=== PATIENT | male | born 1980 | race Caucasian/White ===

== ENCOUNTER 2018-11-17 06:10 | Inpatient (IN) | payer OTHER ==
[2018-11-13 10:25] VITALS: BMI 31.5
[2018-11-17] MEDS ORDERED: VANCOMYCIN 1 GRAM (PRE-DOCKED) 1,000 MG/250 ML BAG IVPB ONE (07:55)
[2018-11-17] MEDS ORDERED: BUPIVACAINE LIPOSOME/PF (EXPAREL) 266 MG/20 ML VIAL NR ONE (08:00)
[2018-11-17] MEDS ORDERED: ceFAZolin 2 GRAM PREMIX BAG IVPB ONE (09:00)
[2018-11-17] MEDS ORDERED: THROMBIN (BOVINE) 5,000 UNIT VIAL TP ONE (09:54)
[2018-11-17] MEDS ORDERED: ceFAZolin SODIUM 1 GM VIAL IVPB ONE ×2 (11:49→11:55)
--- NOTE | 2018-11-17 12:51 | PN ---
Progress Note (short form) - Note Progress Note: 38M s/p L3 laminectomy; L2 & L4 laminotomies; partial corpectomy L4; L3-L4 PLIF ; L3-L4 posterior instrumentation; L3-L4 posterolateral arthrodesis; bone graft ; bone marrow aspiration POD #0. -Pain control: per anaesthesia team; recommend CT TECHNOLOGIST; no NSAID's. -DVT PPx: - Mechanical only: DEMARCO's, SCD's. -Incentive spirometry q15min. -PT/OT/Rehab, OOB. -WBAT B/L LE. -q4h B/L LE NV checks. -Post-op antibiotics x 2 doses. -NPO until flatus. -f/u AM labs. -f/u drain output. -d/c Pritchett catheter when patient ambulating comfortably. -Care per ICU & medical hospitalist team. -Discharge planning: f/u 11/28/2018 at [facility] [place] office; call for appointment; . -Will follow. Shayan Gutierrez MD (Orthopaedic Surgery).
--- NOTE | 2018-11-17 12:56 | OP ---
Operative Note - Note: Operative Date: 11/17/18 Pre-Operative Diagnosis: 1. L3-L4 spondylolisthesis. 2. L3-L4 intervertebral disc disorder. 3. L3-L4 spinal stenosis. 4. Lumbar kyphosis. 5. L3-L4 segmental instability Operation: 1. L3 laminectomy. 2. L2 & L4 laminotomies. 3. L4 partial corpectomy. 4. L3-L4 PLIF. 5. L3-L4 posterior instrumentation. 6. L3-L4 posterolateral arthrodesis. 7. Bone autograft. 8. Bone allograft. 9. Bone marrow aspiration. 10. Complex wound closure (10cm). 11. Biplanar fluoroscopy. 12. Intra-operative neural monitoring Findings: L3 spondylolysis Post-Operative Diagnosis: Other (Pre-op diagnosis PLUS: L3 spondylolysis) Surgeon: Shayan Gutierrez Tattooer: Gonzales Gutierrez Anesthesiologist/DISCHARGE SPECIALIST: Jen Cedillo Anesthesia: General, Local (Erector spinae block) Specimens Removed: L3-L4 disc Estimated Blood Loss (mls): 600 Drains & Tubes with Location: 1 x superficial HemoVac Blood Volume Replaced (mls): 250 (Cell saver) Fluid Volume Replaced (mls): 1,800 (Crystalloid) Operative Report Dictated: Yes
[2018-11-17] MEDS ORDERED: ONDANSETRON 4 MG/2 ML VIAL IVPUSH PRN (12:57)
[2018-11-17] MEDS ORDERED: LACTATED RINGERS SOLUTION 1,000 ML IV SCH (13:00)
--- NOTE | 2018-11-17 13:18 | CONSULT ---
Consultation: REQUESTING PROVIDER: Dr. Gutierrez CONSULT REQUEST: Post-operative observation HISTORY OF PRESENT ILLNESS: The patient is a 38M w/ no reported PMH who presented for scheduled surgery today for L3-4 spondylolisthesis and stenosis. The patient is now s/p: 1. L3 laminectomy. 2. L2 & L4 laminotomies. 3. L4 partial corpectomy. 4. L3-L4 PLIF. 5. L3-L4 posterior instrumentation. 6. L3-L4 posterolateral arthrodesis. 7. Bone autograft. 8. Bone allograft. 9. Bone marrow aspiration. 10. Complex wound closure (10cm). 11. Biplanar fluoroscopy. 12. Intra-operative neural monitoring The patient states that he is has mild pain at the operative site but it is controlled. He denies any other complaints. Denies recent illness, fevers/chills , vision changes, chest pain, SOB, nausea, weakness, or changes in sensation. REVIEW OF SYSTEMS: GENERAL/CONSTITUTIONAL: No fever or chills. No weakness HEAD, EYES, EARS, NOSE AND THROAT: No change in vision. No ear pain or discharge. No sore throat CARDIOVASCULAR: No chest pain or shortness of breath RESPIRATORY: Denies cough, hemoptysis GASTROINTESTINAL: No nausea, vomiting, diarrhea or constipation GENITOURINARY: No dysuria, frequency, or change in urination SKIN: No rash NEUROLOGIC: No headache, vertigo, loss of consciousness, or change in strength/ sensation ENDOCRINE: No increased thirst. No abnormal weight change HEMATOLOGIC/LYMPHATIC: No anemia, easy bleeding, or history of blood clots ALLERGIC/IMMUNOLOGIC: No hives or skin allergy PHYSICAL EXAMINATION Vital Signs - 24 hr 11/17/18 11/17/18 06:44 06:45 Temperature 98.1 F Pulse Rate 72 Respiratory 20 Rate Blood Pressure 149/74 O2 Sat by Pulse 100 Oximetry (%) GENERAL: Awake, alert, and fully oriented, in no acute distress HEAD: No signs of trauma, normocephalic, atraumatic EYES: PERRLA, EOMI, sclera anicteric, conjunctiva clear ENT: Hearing grossly normal, nares patent, oropharynx clear without exudates. Moist mucosa LUNGS: No distress, speaks full sentences, clear to auscultation bilaterally HEART: Regular rate and rhythm, normal S1 and S2, no murmurs appreciated, peripheral pulses normal and equal bilaterally ABDOMEN: Soft, nontender, normoactive bowel sounds. No guarding, no rebound BACK: HV drain in place, surgical dressing in place, C/D/I EXTREMITIES : Normal inspection, Normal range of motion, no edema. No clubbing or cyanosis. Sensation and strength intact distally in all extremities. NEUROLOGICAL: Cranial nerves II through XII grossly intact. Normal speech, no focal sensorimotor deficits SKIN: Warm, Dry, normal turgor, no rashes or lesions noted Active Medications Generic Name Dose Route Start Last Admin Trade Name Freq PRN Reason Stop Dose Admin Acetaminophen 1,000 mg 11/17/18 13:00 Ofirmev Injection - IVPB 11/19/18 05:01 Q8H HERNANDEZ Cefazolin Sodium/Dextrose 2 gm 11/17/18 19:00 Ancef 2 Gm Premixed Ivpb - IVPB 11/18/18 18:59 Q8H HERNANDEZ Lactated Ringer's 1,000 mls @ 125 mls/hr 11/17/18 13:00 Lactated Ringers Solution IV ASDIR HERNANDEZ Ondansetron HCl 4 mg 11/17/18 12:57 Zofran Injection IVPUSH Q6H PRN NAUSEA AND/OR VOMITING ASSESSMENT/PLAN: The patient is a 38M s/p L3-4 PLIF on 11/17/2018 w/ Dr. Gutierrez s/p L3-4 PLIF -q4h B/L MISTI AGOSTO checks Neuro Acute post operative pain -Ofirmev 1g Q8H -S/p nerve block CV HDS, CTM Pulm Breathing comfortably on RA, CTM -IS Q15min GI NPO Pritchett in place -Will D/C when patient is able to ambulate Heme S/p 250 transfusion of cell-saver in OR -Will f/u H/H DVT Ppx -Mechanical only ID Afebrile MSK -Surgical dressing in place, C/D/I -WBAT BLE -PT/OT/Rehab, OOB. LTD Lumbar drain 11/17/2018 Pritchett 11/17/2018 Dispo: Patient to remain in the ICU today for post-operative care Discharge planning: [facility]u [facility]28/2018 [facility] office; call for appointment; . Visit type - Emergency Visit Emergency Visit: Yes ED Registration Date: 11/17/18 Care time: The patient presented to the Emergency Department on the above date and was hospitalized for further evaluation of their emergent condition. - New Patient This patient is new to me today: Yes Date on this admission: 11/17/18 - Critical Care Critical Care patient: Yes Total Critical Care Time (in minutes): 35 Critical Care Statement: The care of this patient involved high complexity decision making to prevent further life threatening deterioration of the patient 's condition and/or to evaluate & treat vital organ system(s) failure or risk of failure.
[2018-11-17] MEDS ORDERED: oxyCODONE HCL 5 MG TABLET PO PRN (13:41)
[2018-11-17] MEDS ORDERED: ACETAMINOPHEN 325 MG TABLET (FP) PO SCH (13:45)
--- NOTE | 2018-11-17 14:29 | OP ---
Date of Operation: 11/17/2018 Pre-Operative Diagnosis: 1. L3-L4 intervertebral disc disorder. 2. L3-L4 spinal stenosis. 3. L3-L4 posterior ligamentous complex disruption. 4. L3-L4 spondylolisthesis. 5. Segmental instability lumbar spine. Post-Operative Diagnosis: 1. L3-L4 intervertebral disc disorder. 2. L3-L4 spinal stenosis. 3. L3-L4 posterior ligamentous complex disruption. 4. L3-L4 spondylolisthesis. 5. L3 spondylolysis. 6. Segmental instability lumbar spine. Procedure Performed: 1. L3 Flores laminectomy. 2. L2, L4 laminotomies. 3. L4 osteotomies/superior facetectomies. 4. L3-L4 discectomy. 5. L4 partial corpectomy. 6. L3-L4 posterior lumbar interbody fusion (PLIF). 7. L3-L4 insertion biomechanical device. 8. L3-L4 posterior arthrodesis. 9. L3-L4 posterior instrumentation. 10. Bone autograft. 11. Bone allograft. 12. Bone marrow aspiration. 13. Complex wound closure, 10cm. 14. Intra-operative biplanar fluoroscopy. 15. Intra-operative neural monitoring. Surgeon: Shayan Gutierrez M.D. Green Chain Operator: Gonzales Gutierrez M.D. Anesthesiologist: Jen Cedillo M.D. Anesthesia: General, Local (Erector spinae block). Position: Prone. Incision: Midline. Specimens Removed: L3-L4 disc. Drains: 1 x deep HemoVac. Estimated Blood Loss: 600cc. Intravenous Fluid: 1.8L crystalloid. Transfusions: 250cc Cell Saver blood. Complications: None. Bacteriology: None. Closure: No. 1 Vicryl, 3-0 Biosyn absorbable sutures. Indications: The patient was indicated for the above listed surgical procedure due to progressive functional decline that limits his mobility and furthermore his ability to attend to his activities of daily living. The patient was identified in the holding area by his armband. A long discussion was held with the patient regarding the risks, benefits, and alternatives of the above-named procedure. The risks include, but are not limited to: Pain, bleeding, infection, damage to surrounding structures (including nerves, blood vessels, skin, ligaments, tendons, and bone), wound complications, failure of hardware/implants/reduction , need for further surgery, blood clots, myocardial infarction, cerebrovascular injury, pulmonary embolism, anesthesia complications, limp, numbness, paresthesias, loss of function, and . Benefits may include reduction of: back pain, leg pain, leg paresthesias, leg numbness, and improved overall mobility and function. Alternatives include no surgery. All questions were answered. The patient understood and agreed to the procedure. Informed consent was obtained, witnessed, and verified. The patient's lumbar spine was marked. He was then assessed by the anesthesia team who proceeded to administer a bilateral imaging-guided erector spina block to facilitate post-operative pain management. The patient was then taken to the operating room after being seen by the anesthesia and nursing staff. Procedure: The patient was brought into the operating room, where anesthesia was then administered. This included 2g IV Ancef, 1g IV Vancomycin, and 1g IV tranexamic acid (TXA). A time-out was done led by , the attending surgeon. An indwelling Pritchett catheter was successfully inserted by the nursing team. The intra-operative neuromonitoring team provided prepositioning baseline motor and sensory readings. The patient was then safely placed in a prone position with all bony prominences well-padded on a [facility] spine table with strict attention paid to maintenance of sagittal vertical alignment. Retroversion of the pelvis was avoided by ensuring that the hips were extended. This also ensured appropriate lumbar lordosis. The arms were placed on well-padded arm boards and maintained with standard forward flexion, abduction, and external rotation of the shoulders , and flexion of the elbows. Special attention was given to the safe positioning of the cervical spine. The patients eyes, breasts, and belly were all free. The table was placed in 10 degrees of reverse Trendelenburg position to avoid ophthalmic vein congestion. Post-positional motor and sensory readings confirmed no change. A C-arm fluoroscopy unit was positioned perpendicularly to the table and maintained at the level of the upper thoracic spine, except when needed. The skin was prepped in standard, sterile fashion using betadine prep & scrub, wiped off with alcohol, and DuraPrep applied. Standard window draping was utilized, and this included draping of the C-arm. Appropriate pre-operative imaging, including lumbar spine x-rays and MRI, were available throughout the case for intraoperative evaluation. Verification of the intended surgical levels was confirmed with a lateral fluoroscopic x-ray using a Gonzalez elevator for localization. A time-out was repeated, and the case began. A midline skin incision was performed from the tip of the spinous process of L2 to the tip of the spinous process of L5. Using electrocautery, the dissection was carried down through subcutaneous fat and then through the midline of the lumbodorsal fascia down to the tips of the spinous processes. A subperiosteal dissection was performed using a combination of unipolar electrocautery and Gonzalez elevation. This was carried down the spinous process, over the laminae, across the facet joints, and out over the tips of the transverse processes from L3 to L4. In this dissection, the capsules of the L2-L3 & L4-L5 joints were preserved bilaterally. The L3-L4 joint capsules were pathologically hypertrophic. They were ablated using electrocautery and resected with rongeurs. There was an obvious step-off noted during the transition from L3 to L4 with an anterolisthesis of L3 on L4. This was confirmed radiographically. The posterolateral dissection was performed with attention to hemostatis by utilizing both unipolar as well as bipolar electrocautery. The posterolateral space was packed with Ray-Vlad sponges. A Lon clamp was placed over the L2-L3 interspinous space and, once again, a lateral fluoroscopic x-ray helped identify the correct levels for dissection. A rongeur was used to grasp the L3 spinous process and demonstrate the mobility of the L3-L4 segment. This confirmed a spondylolysis with pathological movement of the inferior L3 facets during this maneuver. The entirety of the L3 lamina was resected utilizing Kerrison rongeur upcuts combined with Leksell rongeurs. Bilateral and central laminotomies were performed at the caudal end of the L2 lamina and the rostral end of the L4 lamina. All harvested bone was saved, freed of fibrous tissue, and milled with a bone mill. The bilateral L3 inferior facets were easily resected using Kerrison rongeur upcuts and Leksell rongeurs. This was due to the pars interarticularis defects (I.E. spondylolysis) at that level. This completed an L3 Flores laminectomy. Next, we gained clear and easy access to the superior facet of L4, where tight recess stenosis was appreciated. The exiting L3 & L4 nerve roots were identified and protected. The medial edge of the L4 superior facet was resected on each side using Kerrison rongeurs. This freed the theca and the exiting nerve roots at each level. Each foramen at L3-L4 was inspected utilizing an angled ball-tipped probe and proved to be generously capacious in accommodating the unobstructed exit of the nerve root at that level. The crowding of the convoluted ligamentum flavum and posterior facet joint capsules, along with excessive fibrosis adherent to the dura contributed to severe recess stenosis. These structures were excised using a Genoveva elevator and Kerrison upcuts, thus fully completing the decompression. All retractors were relaxed and removed. A Jamshidi needle was delivered into the left posterior ileum through the same surgical incision. Via this, 60 mL of bone marrow was aspirated and spun down to isolate a mix of osteoprogenitor and hematopoietic cells. Retractors were inserted once again. The theca was gently mobilized from right to left and from left to right using a nerve root retractor. In order to do this, we ensured that each nerve root was completely free in its neural foramen as previously described. Access to the L3-L4 disc space was obstructed by the posterior, cephalad corner of the L4 vertebral body. A partial corpectomy of L4 was then performed with an osteotome under fluoroscopic guidance. With the L3-L4 disc space now accessible, large epidural veins were cauterized using bipolar electrocautery. The L3-L4 disc was approached from the left side and from the right side. Using a #11-blade, an elliptical annulotomy was performed. Miguel were passed into the disc. The disc was morselized with rotation of the miguel, and then extricated with pituitary rongeurs and saved for lab evaluation. The end plates were freed of all soft tissues using a serrated curette. Milled bone autograft was packed into the interbody space, thus completing an anterior arthrodesis of the intervertebral space. A size 10mm x 22mm Fortilink Tetrafuse cage spacer was inserted. The cage was placed in a Press-Fit type manner where the miguel were one size under the actual size of the spacer placed as outlined above. An interference fit of the cage assured as we relied on ligamentotaxis for fixation. No dural problems were encountered, and the dura appeared healthy throughout the procedure. At this point, the neuromonitoring revealed no complications. In fact, there was an improvement in MEP readings relative to baseline reported at this point. Pedicle screws were then seated bilaterally from L3-L4 utilizing standard anatomical guidelines: IE the intersection of the horizontal axis of the transverse process with the longitudinal axis of the inferior facet at each level. Utilizing lateral fluoroscopic x-ray, a 4.5mm pneumatic drill was passed via the pedicle at each level, into the corresponding vertebral body. Imaging allowed us to ensure that the drill screw was delivered along the undersurface of each endplate. This was the best quality bone in this osteopenic bone bed. Each pedicle was palpated with a ball tip feeler. No breech of anterior, medial , lateral, caudal or cranial bone bed was noted. Size 50 x 6.5 mm Precision screws were inserted at L4. Size 45 x 6.5 mm Precision screws were inserted at L4. Each screw was reevaluated with lateral and anteroposterior fluoroscopy as well as intraoperative neuromonitoring. All intraoperative neuromonitoring readings were at or above the safe passage of 10 mA, except the right L3 screw which was recorded at 9mA on 2 separate readings. The L3 and L4 pedicles were inspected and palpated using an angled ball-tipped probe. There was no evidence of screw breach involving any of the pedicles. Due to excellent screw position seen on biplanar fluoroscopy, the decision was made not to replace any screws. Next, two rods were inserted and fixed into the screw heads with the appropriate screw caps. A torque-limiting device completed the fixation of each cap into each screw head. No crosslink utilized. The muscle was gently retracted off the intertransverse plane. All packing sponges were removed. Milled autologous bone, with allograft expansion, was combined with the bone marrow aspirate concentrate and used for the posterolateral arthrodesis along the intertransverse plane from L3 to L4. The recipient bone bed was denuded of all soft tissue. No burring was necessary due to healthy bleeding of each bony surface, including the posterior surface of the transverse processes and the lateral surface of the pars interarticularis at each level. Throughout the case, the wound was irrigated with normal saline solution to keep the exposed soft tissues hydrated. The retractors were released every 15 to 20 minutes to enable adequate blood flow to the paraspinal muscles. These muscles were gently massaged upon release of the retractors to further facilitate blood flow. At the end of the procedure, fragmented and compromised paraspinal muscle was superficially debrided. The dura was inspected and was completely intact. Closure: The lumbodorsal fascia overlying the paraspinal musculature was closed in the midline using #1 vicryl sutures in simple interrupted fashion. A 1/8 HemoVac drain was placed in the plane superficial to the fascia, exiting adjacent to the proximal apex of the incision. The wound was repeatedly thoroughly irrigated with normal saline solution. The subcutaneous tissues were closed using #1 vicryl sutures. The skin was closed using a running 3-0 Biosyn absorbable suture. This completed a complex, 4-layered wound closure of approximately 10cm. The skin was then painted with benzoin and Steri-Strips were applied perpendicular to the incision. A Primapore adhesive Telfa island dressing was applied over the Steri-Strips and a sterile, compressive dressing was applied using 4x4 gauze pads. The skin was painted with DuraPrep. The wound was then sealed with adhesive Ioban. Final AP & lateral fluoroscopic analysis revealed a L3-L4 PLIF cage and L3-L4 instrumentation that appeared intact & place. The L3-L4 disc height was reconstituted with visibly patent neuroforaminae and a partial reduction of the spondyloslisthesis was inadvertently achieved. There was no fluoroscopic evidence of retained sponges or needles. The sponge and needle counts were correct at the end of the case and I, the attending surgeon, was present and scrubbed throughout the case. The patient was transferred to a hospital bed. All neural monitoring leads were removed. The patient was then transferred to the recovery room in stable condition, as per the anesthesia team, having tolerated the procedure well. Overall comment: Operation went extremely well with no complications. All appropriate goals were achieved in the execution of this operative event. MD SAM Alvarez/[id number] MTDD
--- NOTE | 2018-11-17 14:39 | PN ---
Teaching Attending Note Name of Resident: Santiago Jordan ATTENDING PHYSICIAN STATEMENT I saw and evaluated the patient. I reviewed the resident's note and discussed the case with the resident. I agree with the resident's findings and plan as documented. SUBJECTIVE: Patient seen and examined in the ICU. Known L3-4 spondylolisthesis and stenosis. Now S/P: 1. L3 laminectomy. 2. L2 & L4 laminotomies. 3. L4 partial corpectomy. 4. L3-L4 PLIF. 5. L3-L4 posterior instrumentation. 6. L3-L4 posterolateral arthrodesis. 7. Bone autograft. 8. Bone allograft. 9. Bone marrow aspiration. 10. Complex wound closure (10cm). 11. Biplanar fluoroscopy. 12. Intra-operative neural monitoring Awake and alert. Only reports mild pain at the operative site. No CP or SOB. Intake & Output 11/14/18 11/15/18 11/16/18 11/17/18 23:59 23:59 23:59 23:59 Intake Total 2050 Output Total 1000 Balance 1050 Last Vital Signs Temp Pulse Resp BP Pulse Ox 97.9 F 80 22 H 122/73 98 11/17/18 13:00 11/17/18 14:00 11/17/18 14:00 11/17/18 14:00 11/17/18 14:00 Active Medications Acetaminophen (Ofirmev Injection -) 1,000 mg IVPB Q8H [facility] Stop: 11/19/18 06:01 Diazepam (Valium -) 5 mg PO BID [facility] Fentanyl (Sublimaze Injection -) 50 mcg IVPUSH [id number] PRN PRN Reason: PAIN-PACU ORDER X 4 DOSES ONLY Last Admin: 11/17/18 13:53 Dose: 50 mcg Lactated Ringer's (Lactated Ringers Solution) 1,000 mls @ 125 mls/hr IV ASDIR [facility] Last Admin: 11/17/18 13:00 Dose: 125 mls/hr Cefazolin Sodium/Dextrose (Ancef 2 Gm Premixed Ivpb -) 2 gm in 50 mls @ 100 mls /hr IVPB Q8H [facility] Stop: 11/18/18 18:59 Ondansetron HCl (Zofran Injection) 4 mg IVPUSH Q6H PRN PRN Reason: NAUSEA AND/OR VOMITING Oxycodone HCl (Roxicodone -) 5 mg PO Q3H PRN PRN Reason: PAIN LEVEL 1-5 Oxycodone HCl (Oxycontin -) 10 mg PO BID HERNANDEZ Oxycodone HCl (Roxicodone -) 10 mg PO Q3H PRN PRN Reason: PAIN LEVEL 6-10 GENERAL: Awake, alert, and oriented, in no acute distress HEAD: No signs of trauma, normocephalic, atraumatic EYES: PERRLA, EOMI, sclera anicteric, conjunctiva clear ENT: Hearing grossly normal, nares patent, oropharynx clear without exudates. Moist mucosa LUNGS: Clear to auscultation bilaterally HEART: Regular rate and rhythm, normal S1 and S2, no murmurs appreciated ABDOMEN: Soft, nontender, normoactive bowel sounds. No guarding, no rebound BACK: drain intact, surgical dressing in place, C/D/I EXTREMITIES : no edema. No clubbing or cyanosis. Sensation and strength intact distally in all extremities. NEUROLOGICAL: Non-focal SKIN: Warm, Dry, normal turgor, no rashes or lesions noted ASSESSMENT/PLAN: POD #0: 1. L3 laminectomy. 2. L2 & L4 laminotomies. 3. L4 partial corpectomy. 4. L3-L4 PLIF. 5. L3-L4 posterior instrumentation. 6. L3-L4 posterolateral arthrodesis. 7. Bone autograft. 8. Bone allograft. 9. Bone marrow aspiration. 10. Complex wound closure (10cm). 11. Biplanar fluoroscopy. 12. Intra-operative neural monitoring PLAN: Pain control O2 as needed B/L LE NV checks Mechanical VTE prophylaxis Incentive Spirometry PO once flatus Pritchett when able to ambulate Normal transfusion thresholds Further disposition per Orthopedic attending Dr Nieto
[2018-11-17] MEDS: oxyCODONE HCL 5 MG TABLET PO PRN ×2 (15:15→18:00)
[2018-11-17] MEDS: ACETAMINOPHEN 1000 MG/100 ML VIAL (NON FORMULARY) IVPB SCH ×2 (15:16→22:08)
[2018-11-17 16:20] LABS: URINE APPEARANCE TURBID; URINE BILIRUBIN NEGATIVE (<2.0 mg/dL); URINE COLOR LTYELLOW; URINE GLUCOSE (UA) NEGATIVE (NEGATIVE); URINE KETONE NEGATIVE (NEGATIVE); URINE LEUK ESTERASE NEGATIVE (NEGATIVE); URINE NITRITE NEGATIVE (NEGATIVE); URINE PROTEIN NEGATIVE (NEGATIVE); URINE UROBILINOGEN NEGATIVE mg/dL (0.2-1.0)
[2018-11-17 16:45] LABS: EPI CELLS RARE /HPF (FEW); URIC ACID CRYSTALS FEW /hpf (NONE SEEN); URINE BACTERIA FEW /hpf (NONE SEEN); URINE MUCUS RARE
[2018-11-17] MEDS: CEFAZOLIN 2 GM/D5W 2 GM/50 ML ML IVPB SCH (18:01)
[2018-11-17] MEDS ORDERED: ceFAZolin 2 GRAM PREMIX BAG IVPB SCH (19:00)
[2018-11-17] MEDS: oxyCODONE HCL 10 MG SUSTAINED ACTING TABLET PO SCH (22:01)
[2018-11-17] MEDS: diazePAM 5 MG TABLET PO SCH (22:03)
[2018-11-18] MEDS: CEFAZOLIN 2 GM/D5W 2 GM/50 ML ML IVPB SCH ×2 (02:30→12:35)
[2018-11-18] MEDS: ACETAMINOPHEN 1000 MG/100 ML VIAL (NON FORMULARY) IVPB SCH ×3 (05:14→21:41)
[2018-11-18] MEDS: oxyCODONE HCL 5 MG TABLET PO PRN ×4 (05:15→20:17)
[2018-11-18 05:56] LABS: MCH 30.3 pg (25.7-33.7); MCHC 33.4 g/dl (32.0-35.9); MEAN CELL VOLUME 90.8 fl (80-96); MEAN PLT VOLUME 8.8 fl (7.5-11.1); PLATELET COUNT 178 K/MM3 (134-434); RBC 3.97 M/mm3 (4.00-5.60); RDW 12.8 % (11.9-15.9)
[2018-11-18 06:25] LABS: ANION GAP 6 MMOL/L (8-16); BLOOD UREA NITROGEN 13 mg/dL (7-18); CALCIUM 7.9 mg/dL (8.5-10.1); CHLORIDE 101 mmol/L (98-107); CO2 29 mmol/L (21-32); CREATININE 0.8 mg/dL (0.55-1.3); GLUCOSE,RANDOM 101 mg/dL (74-106); POTASSIUM 4.1 mmol/L (3.5-5.1); SODIUM 136 mmol/L (136-145)
[2018-11-18] MEDS: oxyCODONE HCL 10 MG SUSTAINED ACTING TABLET PO SCH ×2 (09:05→22:48)
[2018-11-18] MEDS: diazePAM 5 MG TABLET PO SCH ×2 (09:05→21:42)
--- NOTE | 2018-11-18 10:27 | PN ---
Teaching Attending Note Name of Resident: Shayan Zhao ATTENDING PHYSICIAN STATEMENT I saw and evaluated the patient. I reviewed the resident's note and discussed the case with the resident. I agree with the resident's findings and plan as documented. SUBJECTIVE: Patient seen and examined in the ICU. Pain seems adequately controlled. No CP or SOB. No acute events overnight. Intake & Output 11/15/18 11/16/18 11/17/18 11/18/18 23:59 23:59 23:59 23:59 Intake Total 3250 650 Output Total 1280 1700 Balance 1970 -1050 Weight 236 lb Last Vital Signs Temp Pulse Resp BP Pulse Ox 97.8 F 66 16 115/80 100 11/17/18 18:30 11/18/18 08:00 11/18/18 08:40 11/18/18 08:00 11/18/18 08:40 Active Medications Acetaminophen (Ofirmev Injection -) 1,000 mg IVPB Q8H [facility] Stop: 11/19/18 06:01 Last Admin: 11/18/18 05:14 Dose: 1,000 mg Diazepam (Valium -) 5 mg PO BID [facility] Last Admin: 11/17/18 22:03 Dose: 5 mg Fentanyl (Sublimaze Injection -) 50 mcg IVPUSH [id number] PRN PRN Reason: PAIN-PACU ORDER X 4 DOSES ONLY Last Admin: 11/17/18 13:53 Dose: 50 mcg Cefazolin Sodium/Dextrose (Ancef 2 Gm Premixed Ivpb -) 2 gm in 50 mls @ 100 mls /hr IVPB Q8H [facility] Stop: 11/18/18 18:59 Last Admin: 11/18/18 02:30 Dose: 100 mls/hr Ondansetron HCl (Zofran Injection) 4 mg IVPUSH Q6H PRN PRN Reason: NAUSEA AND/OR VOMITING Oxycodone HCl (Roxicodone -) 5 mg PO Q3H PRN PRN Reason: PAIN LEVEL 1-5 Last Admin: 11/17/18 21:00 Dose: 5 mg Oxycodone HCl (Oxycontin -) 10 mg PO BID [facility] Last Admin: 11/18/18 09:05 Dose: 10 mg Oxycodone HCl (Roxicodone -) 10 mg PO Q3H PRN PRN Reason: PAIN LEVEL 6-10 Last Admin: 11/18/18 05:15 Dose: 10 mg GENERAL: Awake, alert, and oriented, in no acute distress HEAD: No signs of trauma, normocephalic, atraumatic EYES: PERRLA, EOMI, sclera anicteric, conjunctiva clear ENT: Hearing grossly normal, nares patent, oropharynx clear without exudates. Moist mucosa LUNGS: Clear to auscultation bilaterally HEART: Regular rate and rhythm, normal S1 and S2, no murmurs appreciated ABDOMEN: Soft, nontender, normoactive bowel sounds. No guarding, no rebound BACK: drain intact, surgical dressing in place, C/D/I EXTREMITIES : no edema. No clubbing or cyanosis. Sensation and strength intact distally in all extremities. NEUROLOGICAL: Non-focal SKIN: Warm, Dry, normal turgor, no rashes or lesions noted Laboratory Results - last 24 hr 11/17/18 11/18/18 11/18/18 15:30 05:15 05:15 WBC 7.0 RBC 3.97 L Hgb 12.0 Hct 36.0 MCV 90.8 MCH 30.3 MCHC 33.4 RDW 12.8 Plt Count 178 MPV 8.8 Sodium 136 Potassium 4.1 Chloride 101 Carbon Dioxide 29 Anion Gap 6 L BUN 13 Creatinine 0.8 Creat Clearance w eGFR > 60 Random Glucose 101 Calcium 7.9 L Urine Color Ltyellow Urine Appearance Turbid Urine pH 5.0 Ur Specific [place] 1.014 Urine Protein Negative Urine Glucose (UA) Negative Urine Ketones Negative Urine Blood 3+ H Urine Nitrite Negative Urine Bilirubin Negative Urine Urobilinogen Negative Ur Leukocyte Esterase Negative Urine WBC (Auto) 9 Urine RBC (Auto) 7 Ur Epithelial Cells Rare Uric Acid Crystals Few Urine Bacteria Few Urine Mucus Rare ASSESSMENT/PLAN: POD #0: 1. L3 laminectomy. 2. L2 & L4 laminotomies. 3. L4 partial corpectomy. 4. L3-L4 PLIF. 5. L3-L4 posterior instrumentation. 6. L3-L4 posterolateral arthrodesis. 7. Bone autograft. 8. Bone allograft. 9. Bone marrow aspiration. 10. Complex wound closure (10cm). 11. Biplanar fluoroscopy. 12. Intra-operative neural monitoring PLAN: OOB to chair Pain control O2 as needed B/L LE NV checks Mechanical VTE prophylaxis Incentive Spirometry PO as tolerated D/C [place] Normal transfusion thresholds D/C planning per Orthopedic / Medical team Dr Nieto
--- NOTE | 2018-11-18 11:07 | PN ---
Physical Exam: SUBJECTIVE: Patient seen and examined at bedside. No acute complaints. Pain well controlled. Passing flatus. No BM. On clears. Manzano in place. OBJECTIVE: Vital Signs Period Temp Pulse Resp BP Sys/Lewis Pulse Ox Last 24 Hr 97.8 F-98.2 F 66-84 11-23 115-149/62-97 96-100 GENERAL: A&Ox3, NAD HEAD: NC/AT EYES: PERRLA, EOMI ENT: MMM NECK: Trachea midline, full range of motion, supple. LUNGS: CTA b/l HEART: RRR no m/r/g ABDOMEN: +bs, soft, NT, ND EXTREMITIES: 2+ pulses, warm, well-perfused, no edema. NEUROLOGICAL: crnp, motor, sensory systems w/o focal deficit PSYCH: Normal mood, normal affect. SKIN: Warm, dry, normal turgor, no rashes or lesions noted DRAINS: 100cc lumbar drain Laboratory Results - last 24 hr 11/17/18 11/18/18 11/18/18 15:30 05:15 05:15 WBC 7.0 RBC 3.97 L Hgb 12.0 Hct 36.0 MCV 90.8 MCH 30.3 MCHC 33.4 RDW 12.8 Plt Count 178 MPV 8.8 Sodium 136 Potassium 4.1 Chloride 101 Carbon Dioxide 29 Anion Gap 6 L BUN 13 Creatinine 0.8 Creat Clearance w eGFR > 60 Random Glucose 101 Calcium 7.9 L Urine Color Ltyellow Urine Appearance Turbid Urine pH 5.0 Ur Specific [place] 1.014 Urine Protein Negative Urine Glucose (UA) Negative Urine Ketones Negative Urine Blood 3+ H Urine Nitrite Negative Urine Bilirubin Negative Urine Urobilinogen Negative Ur Leukocyte Esterase Negative Urine WBC (Auto) 9 Urine RBC (Auto) 7 Ur Epithelial Cells Rare Uric Acid Crystals Few Urine Bacteria Few Urine Mucus Rare Active Medications Generic Name Dose Route Start Last Admin Trade Name Freq PRN Reason Stop Dose Admin Acetaminophen 1,000 mg 11/17/18 14:00 11/18/18 05:14 Ofirmev Injection - IVPB 11/19/18 06:01 1,000 mg Q8H HERNANDEZ Administration Diazepam 5 mg 11/17/18 22:00 11/17/18 22:03 Valium - PO 5 mg BID HERNANDEZ Administration Fentanyl 50 mcg 11/17/18 13:40 11/17/18 13:53 Sublimaze Injection - IVPUSH 50 mcg [id number] PRN Administration PAIN-PACU ORDER X 4 DOSES ONLY Cefazolin Sodium/Dextrose 2 gm in 50 mls @ 100 mls/hr 11/17/18 19:00 02:30 Ancef 2 Gm Premixed Ivpb - IVPB 11/18/18 18:59 100 mls/hr Q8H HERNANDEZ Administration Ondansetron HCl 4 mg 11/17/18 12:57 Zofran Injection IVPUSH Q6H PRN NAUSEA AND/OR VOMITING Oxycodone HCl 5 mg 11/17/18 13:41 11/17/18 21:00 Roxicodone - PO 5 mg Q3H PRN Administration PAIN LEVEL 1-5 Oxycodone HCl 10 mg 11/17/18 22:00 11/18/18 09:05 Oxycontin - PO 10 mg BID HERNANDEZ Administration Oxycodone HCl 10 mg 11/17/18 13:43 11/18/18 05:15 Roxicodone - PO 10 mg Q3H PRN Administration PAIN LEVEL 6-10 ASSESSMENT/PLAN: 38 y/o M w/ no significant PMHx POD 1 s/p the followin. L3 laminectomy. 2. L2 & L4 laminotomies. 3. L4 partial corpectomy. 4. L3-L4 PLIF. 5. L3-L4 posterior instrumentation. 6. L3-L4 posterolateral arthrodesis. 7. Bone autograft. 8. Bone allograft. 9. Bone marrow aspiration. 10. Complex wound closure (10cm). 11. Biplanar fluoroscopy. 12. Intra-operative neural monitoring Plan: -discontinue manzano -adv diet -d/c fluids -oxycodone 5, 10 per pain scale and oxycontin BID -PT/OT/rehab -WBAT -mechanical DVT PPx -IS #dispo -d/c planning per primary/Sx team -f/u 11/28/2018 at [facility] office; call for appointment; . Visit type - Emergency Visit Emergency Visit: No - New Patient This patient is new to me today: Yes Date on this admission: 11/18/18 - Critical Care Critical Care patient: Yes Total Critical Care Time (in minutes): 40 Critical Care Statement: The care of this patient involved high complexity decision making to prevent further life threatening deterioration of the patient 's condition and/or to evaluate & treat vital organ system(s) failure or risk of failure.
[2018-11-18] MEDS ORDERED: HEMOQUE TEST 1 EACH EACH ONE (12:01)
--- NOTE | 2018-11-18 13:43 | PN ---
Physical Exam: SUBJECTIVE: Patient seen and examined at bedside this morning. He endorses mild back pain that is well controlled with oral oxycodone. Endorses urinating without dysuria, or hematuria. Passing flatus, however no bowel movements. Wound drain 100cc within past 24 hours. OBJECTIVE: Vital Signs Period Temp Pulse Resp BP Sys/Lewis Pulse Ox Last 24 Hr 97.8 F-98.6 F 66-80 11-23 115-149/62-97 98-100 GENERAL: The patient is awake, alert, and fully oriented, in no acute distress. HEAD: Normal with no signs of trauma. EYES: PERRLA, extraocular movements intact, sclera anicteric, conjunctiva clear. ENT: Oropharynx clear without exudates, moist mucous membranes. NECK: Trachea midline, supple without lymphadenopathy. LUNGS: Breath sounds equal, clear to auscultation bilaterally, no wheezes, no crackles, no accessory muscle use. HEART: Regular rate and rhythm, S1, S2 without murmur, rub or gallop. ABDOMEN: Soft, nontender, nondistended, normoactive bowel sounds, no guarding, no rebound tenderness. No hepatomegally appreciated. EXTREMITIES: 2+ radial and dorsalis pedis pulses b/l. Warm, well-perfused. No lower extremity edema b/l. NEUROLOGICAL: Cranial nerves II through XII grossly intact. Normal speech. Strength 4/5 b/l lower extremities limited by back pain. Strength 5/5 b/l upper extremities. PSYCH: Normal mood, normal affect upon my encounter today. SKIN: Warm, dry. Surgical site visualized clean, dry without bleeding, or drainage. Laboratory Results - last 24 hr 11/17/18 11/18/18 11/18/18 15:30 05:15 05:15 WBC 7.0 RBC 3.97 L Hgb 12.0 Hct 36.0 MCV 90.8 MCH 30.3 MCHC 33.4 RDW 12.8 Plt Count 178 MPV 8.8 Sodium 136 Potassium 4.1 Chloride 101 Carbon Dioxide 29 Anion Gap 6 L BUN 13 Creatinine 0.8 Creat Clearance w eGFR > 60 Random Glucose 101 Calcium 7.9 L Urine Color Ltyellow Urine Appearance Turbid Urine pH 5.0 Ur Specific [place] 1.014 Urine Protein Negative Urine Glucose (UA) Negative Urine Ketones Negative Urine Blood 3+ H Urine Nitrite Negative Urine Bilirubin Negative Urine Urobilinogen Negative Ur Leukocyte Esterase Negative Urine WBC (Auto) 9 Urine RBC (Auto) 7 Ur Epithelial Cells Rare Uric Acid Crystals Few Urine Bacteria Few Urine Mucus Rare Active Medications Generic Name Dose Route Start Last Admin Trade Name Freq PRN Reason Stop Dose Admin Acetaminophen 1,000 mg 11/17/18 14:00 11/18/18 05:14 Ofirmev Injection - IVPB 11/19/18 06:01 1,000 mg Q8H HERNANDEZ Administration Diazepam 5 mg 11/17/18 22:00 11/18/18 09:05 Valium - PO 5 mg BID HERNANDEZ Administration Fentanyl 50 mcg 11/17/18 13:40 11/17/18 13:53 Sublimaze Injection - IVPUSH 50 mcg [id number] PRN Administration PAIN-PACU ORDER X 4 DOSES ONLY Cefazolin Sodium/Dextrose 2 gm in 50 mls @ 100 mls/hr 11/17/18 19:00 12:35 Ancef 2 Gm Premixed Ivpb - IVPB 11/18/18 18:59 100 mls/hr Q8H HERNANDEZ Administration Ondansetron HCl 4 mg 11/17/18 12:57 Zofran Injection IVPUSH Q6H PRN NAUSEA AND/OR VOMITING Oxycodone HCl 5 mg 11/17/18 13:41 11/17/18 21:00 Roxicodone - PO 5 mg Q3H PRN Administration PAIN LEVEL 1-5 Oxycodone HCl 10 mg 11/17/18 22:00 11/18/18 09:05 Oxycontin - PO 10 mg BID HERNANDEZ Administration Oxycodone HCl 10 mg 11/17/18 13:43 11/18/18 12:22 Roxicodone - PO 10 mg Q3H PRN Administration PAIN LEVEL 6-10 ASSESSMENT/PLAN: Patient is a 38 year old male with no significant past medical history, s/p L3 laminectomy, L2 & L4 laminotomies, partial corpectomy L4, L3-L4 PLIF, L3-L4 posterior instrumentation, L3-L4 posterolateral arthrodesis, bone graft,bone marrow aspiration. Back pain -Patient is POD #1 s/p L3 laminectomy, L2 & L4 laminotomies, partial corpectomy L4, L3-L4 PLIF, L3-L4 posterior instrumentation, L3-L4 posterolateral arthrodesis, bone graft,bone marrow aspiration. -Patient received Ancef 2 grams postoperatively. Second dose tonight. -Pain control with Oxycodone SR 10mg PO BID. -Oxycodone 5 mg PO Q3H PRN pain 1-5 -Oxycodone 10 mg PO Q3H PRN pain 6-10 -Zofran 4mg IV Q6H PRN -PT evaluation Constipation -Miralax 17 grams PO once FEN -No IV fluids. Encourage judicious oral hydration -Within normal limits. Follow CMP -Regular diet. Prophylaxis -SCDs/ TEDs B/L lower extremities. Disposition -Continue care in medical surgical floor. Visit type - Emergency Visit Emergency Visit: No - New Patient This patient is new to me today: Yes Date on this admission: 11/18/18 - Critical Care Critical Care patient: No - Discharge Referral Referred to [facility] Med P.C.: No
[2018-11-18] MEDS ORDERED: POLYETHYLENE GLYCOL 3350 119 GM BTL PO ONE (17:05)
--- NOTE | 2018-11-18 19:51 | PN ---
Teaching Attending Note Name of Resident: Pop Hernandez ATTENDING PHYSICIAN STATEMENT I saw and evaluated the patient. I reviewed the resident's note and discussed the case with the resident. I agree with the resident's findings and plan as documented. SUBJECTIVE: patient is feeling better , continues to have low back pain but better. OBJECTIVE: Vital Signs Temperature 98.0 F 11/18/18 14:00 Pulse Rate 72 11/18/18 14:00 Respiratory Rate 18 11/18/18 14:00 Blood Pressure 122/66 11/18/18 14:00 O2 Sat by Pulse Oximetry (%) 99 11/18/18 14:05 GENERAL: The patient is awake, alert, and fully oriented, in no acute distress. HEAD: Normal with no signs of trauma. EYES: PERRLA, extraocular movements intact, sclera anicteric, conjunctiva clear. ENT: Oropharynx clear without exudates, moist mucous membranes. NECK: Trachea midline, supple without lymphadenopathy. LUNGS: Breath sounds equal, clear to auscultation bilaterally, no wheezes, no crackles, no accessory muscle use. HEART: Regular rate and rhythm, S1, S2 without murmur, rub or gallop. ABDOMEN: Soft, nontender, nondistended, normoactive bowel sounds, no guarding, no rebound tenderness. No hepatomegally appreciated. EXTREMITIES: pulses are positive Warm, well-perfused. No lower extremity edema b /l. NEUROLOGICAL: Cranial nerves II through XII grossly intact. further testing by PSYCH: Normal mood, normal affect upon my encounter today. SKIN: Warm, dry. CBCD WBC 7.0 K/mm3 (4.0-10.0) 11/18/18 05:15 RBC 3.97 M/mm3 (4.00-5.60) L 11/18/18 05:15 Hgb 12.0 GM/dL (11.7-16.9) 11/18/18 05:15 Hct 36.0 % (35.4-49) 11/18/18 05:15 MCV 90.8 fl (80-96) 11/18/18 05:15 MCHC 33.4 g/dl (32.0-35.9) 11/18/18 05:15 RDW 12.8 % (11.9-15.9) 11/18/18 05:15 Plt Count 178 K/MM3 (134-434) 11/18/18 05:15 MPV 8.8 fl (7.5-11.1) 11/18/18 05:15 CMP Sodium 136 mmol/L (136-145) 11/18/18 05:15 Potassium 4.1 mmol/L (3.5-5.1) 11/18/18 05:15 Chloride 101 mmol/L (98-107) 11/18/18 05:15 Carbon Dioxide 29 mmol/L (21-32) 11/18/18 05:15 Anion Gap 6 MMOL/L (8-16) L 11/18/18 05:15 BUN 13 mg/dL (7-18) 11/18/18 05:15 Creatinine 0.8 mg/dL (0.55-1.3) 11/18/18 05:15 Creat Clearance w eGFR > 60 (>60) 11/18/18 05:15 Random Glucose 101 mg/dL (74-106) 11/18/18 05:15 Calcium 7.9 mg/dL (8.5-10.1) L 11/18/18 05:15 Current Medications Generic Name Dose Route Start Last Admin Trade Name Freq PRN Reason Stop Dose Admin Acetaminophen 1,000 mg 11/17/18 14:00 11/18/18 13:59 Ofirmev Injection - IVPB 11/19/18 06:01 1,000 mg Q8H HERNANDEZ Administration Diazepam 5 mg 11/17/18 22:00 11/18/18 09:05 Valium - PO 5 mg BID HERNANDEZ Administration Fentanyl 50 mcg 11/17/18 13:40 11/17/18 13:53 Sublimaze Injection - IVPUSH 50 mcg [id number] PRN Administration PAIN-PACU ORDER X 4 DOSES ONLY Ondansetron HCl 4 mg 11/17/18 12:57 Zofran Injection IVPUSH Q6H PRN NAUSEA AND/OR VOMITING Oxycodone HCl 5 mg 11/17/18 13:41 11/17/18 21:00 Roxicodone - PO 5 mg Q3H PRN Administration PAIN LEVEL 1-5 Oxycodone HCl 10 mg 11/17/18 22:00 11/18/18 09:05 Oxycontin - PO 10 mg BID HERNANDEZ Administration Oxycodone HCl 10 mg 11/17/18 13:43 11/18/18 17:12 Roxicodone - PO 10 mg Q3H PRN Administration PAIN LEVEL 6-10 Home Medications Medication Instructions Recorded Ibuprofen 600 mg PO PRN PRN 11/13/18 Multivitamin [One-Daily 1 each PO DAILY 11/13/18 Multi-Vitamin] ASSESSMENT AND PLAN: Patient is a 38 year old male with no significant past medical history, s/p L3 laminectomy, L2 & L4 laminotomies, partial corpectomy L4, L3-L4 PLIF, L3-L4 posterior instrumentation, L3-L4 posterolateral arthrodesis, bone graft, bone marrow aspiration. #POD #1 s/p L3 laminectomy, L2 & L4 laminotomies, partial corpectomy L4, L3-L4 PLIF, L3-L4 posterior instrumentation, L3-L4 posterolateral arthrodesis, bone graft,bone marrow aspiration. On pain meds for pain control continue # Constipation continue with Miralax 17 grams PO bid and colace DVT Px:SCDs/ TEDs B/L lower extremities.
[2018-11-18] MEDS: DOCUSATE SODIUM 100 MG CAPSULE (FP) PO SCH (21:42)
[2018-11-19] MEDS: oxyCODONE HCL 5 MG TABLET PO PRN ×3 (04:25→18:32)
[2018-11-19] MEDS: ACETAMINOPHEN 1000 MG/100 ML VIAL (NON FORMULARY) IVPB SCH (06:15)
[2018-11-19 07:18] LABS: BASO % 0.4 % (0-2.0); EOS % 0.5 % (0-4.5); HEMATOCRIT 34.4 % (35.4-49); HEMOGLOBIN 11.4 GM/dL (11.7-16.9); LYMPH % 19.1 % (8-40); MCH 30.2 pg (25.7-33.7); MCHC 33.2 g/dl (32.0-35.9); MEAN PLT VOLUME 8.5 fl (7.5-11.1); PLATELET COUNT 167 K/MM3 (134-434); RBC 3.78 M/mm3 (4.00-5.60); RDW 12.8 % (11.9-15.9); WHITE BLOOD COUNT 6.4 K/mm3 (4.0-10.0)
[2018-11-19 07:50] LABS: ANION GAP 7 MMOL/L (8-16); BLOOD UREA NITROGEN 10 mg/dL (7-18); CALCIUM 7.3 mg/dL (8.5-10.1); CHLORIDE 101 mmol/L (98-107); CO2 26 mmol/L (21-32); CREATININE 0.8 mg/dL (0.55-1.3); GLUCOSE,RANDOM 105 mg/dL (74-106); PHOSPHOROUS 2.5 mg/dL (2.5-4.9); POTASSIUM 3.8 mmol/L (3.5-5.1); SODIUM 134 mmol/L (136-145)
--- NOTE | 2018-11-19 08:48 | PN ---
Progress Note (short form) - Note Progress Note: Anesthesiology Post-op/Pain Service 38 y.o. man POD#2 s/p lumbar laminectomy and TLIF with GA and erector spinae blocks. Pt. is AA+O in bed. He does have some pain but it is controlled with PO meds. He is tolerating PO intake and able to walk without problems. No apparent anesthesia-related issues. VSS. 38 y.o. man with stable post-operative course. Continue management as per primary team.
[2018-11-19] MEDS: diazePAM 5 MG TABLET PO SCH ×2 (09:00→22:08)
[2018-11-19] MEDS: oxyCODONE HCL 10 MG SUSTAINED ACTING TABLET PO SCH ×2 (09:00→22:08)
--- NOTE | 2018-11-19 13:19 | PATH ---
Surgical Pathology Report Patient Name: YOSSI AGUIRRE [facility]. Rec. #: [id number] /Age/Gender: 1980 (Age: 38) / F Account: [id number] Location: [facility] Taken: 11/17/2018 Received: 11/17/2018 Reported: 11/19/2018 Physicians: Shayan Gutierrez M.D. Specimen(s) Received L3-L4 DISC Clinical History L3-L4 spinal stenosis Final Diagnosis DISC, L3-L4, LUMBAR INTERBODY FUSION: BENIGN INTERVERTEBRAL DISC TISSUE, BONE, AND SCANTY MARROW ELEMENTS. Electronically Signed Almita Worrell M.D. Gross Description Received in formalin labeled "L3/L4 disc," is a 3.5 x 3.0 x 0.4 cm aggregate of hayes-red fragments of fibrocartilaginous tissue. A medical customer service representative portion is submitted in one cassette. /11/17/201811/17/2018
--- NOTE | 2018-11-19 15:33 | PN ---
Teaching Attending Note Name of Resident: Pop Hernandez ATTENDING PHYSICIAN STATEMENT I saw and evaluated the patient. I reviewed the resident's note and discussed the case with the resident. I agree with the resident's findings and plan as documented. SUBJECTIVE: Complains of some mild back discomfort. No numbness/tingling LEs. No bladder/bowel dysfunction. Fever overnight - no cough/sputum/nausea/vomiting/ diarrhea/dysuria. OBJECTIVE: T max 100.9, Hemodynamically Stable. Last Vital Signs Temp Pulse Resp BP Pulse Ox 97.9 F 88 20 144/76 99 11/19/18 14:37 11/19/18 14:37 11/19/18 10:00 11/19/18 14:37 11/19/18 09:00 HEENT - Atraumatic, Normocephalic Heart - S1, S2, RRR Lungs - clear to auscultation - no crackles/wheeze Abdomen - Soft, non-tender. Bowel Sounds normal. Back - surgical dressing in place - dry, clean Extremities - no edema. No calf tenderness. Neuro - AAO x 3. Tone/Power normal all 4 extremities. Laboratory Results - last 24 hr 11/19/18 11/19/18 06:30 06:30 WBC 6.4 RBC 3.78 L Hgb 11.4 L Hct 34.4 L MCV 91.0 MCH 30.2 MCHC 33.2 RDW 12.8 Plt Count 167 MPV 8.5 Absolute Neuts (auto) 4.3 Neutrophils % 67.0 Lymphocytes % 19.1 Monocytes % 13.0 H Eosinophils % 0.5 Basophils % 0.4 Nucleated RBC % 0 Sodium 134 L Potassium 3.8 Chloride 101 Carbon Dioxide 26 Anion Gap 7 L BUN 10 Creatinine 0.8 Creat Clearance w eGFR > 60 Random Glucose 105 Calcium 7.3 L Phosphorus 2.5 Magnesium 2.0 Current Medications Generic Name Dose Route Start Last Admin Trade Name Freq PRN Reason Stop Dose Admin Diazepam 5 mg 11/17/18 22:00 11/19/18 09:00 Valium - PO 5 mg BID HERNANDEZ Administration Docusate Sodium 300 mg 11/18/18 22:00 11/18/18 21:42 Colace - PO 300 mg HS HERNANDEZ Administration Ondansetron HCl 4 mg 11/17/18 12:57 Zofran Injection IVPUSH Q6H PRN NAUSEA AND/OR VOMITING Oxycodone HCl 5 mg 11/17/18 13:41 11/17/18 21:00 Roxicodone - PO 5 mg Q3H PRN Administration PAIN LEVEL 1-5 Oxycodone HCl 10 mg 11/17/18 22:00 11/19/18 09:00 Oxycontin - PO 10 mg BID HERNANDEZ Administration Oxycodone HCl 10 mg 11/17/18 13:43 11/19/18 13:46 Roxicodone - PO 10 mg Q3H PRN Administration PAIN LEVEL 6-10 ASSESSMENT AND PLAN: 38 year old male with no significant PMH, admitted 11/17 with Spinal Stenosis, currently POD 2 s/p L3 laminectomy, L2 & L4 laminotomies, partial corpectomy L4 , L3-L4 PLIF, L3-L4 posterior instrumentation, L3-L4 posterolateral arthrodesis , bone graft, bone marrow aspiration. 1. POD 2 s/p L3 laminectomy, L2 & L4 laminotomies, partial corpectomy L4, L3-L4 PLIF, L3-L4 posterior instrumentation, L3-L4 posterolateral arthrodesis, bone graft for spinal stenosis. Continue Valium, Oxycontin, and Roxicodone prn. Febrile post-op, likley sec to atelectasis. No clear source of infection. Will hold off Abx for now and encourage incentive spirometry. If further fever spikes , will palafox-culture. Currently asymptomatic. 2. Constipation - continue colace and miralax prn. DVT Px - SCDs.
[2018-11-19] MEDS: POLYETHYLENE GLYCOL 3350 119 GM BTL PO PRN (16:20)
--- NOTE | 2018-11-19 18:45 | PN ---
Physical Exam: SUBJECTIVE: Patient seen and examined at bedside. Overnight febrile to Tmax 100.9F. He endorses ambulating well from bed to bathroom. Endorses passing flatus, without bowel movement. Denies subjective fevers, or chills. Denies cough, shortness of breath, chest pain, palpitations, abdominal pain, nausea, vomiting, diarrhea, melena, hematochezia, dysuria, hematuria. Endorses mild back pain, well controlled with Oxycodone. OBJECTIVE: Vital Signs Period Temp Pulse Resp BP Sys/Lewsi Pulse Ox Last 24 Hr 97.9 F-100.9 F 84-95 20-20 126-144/70-85 99-99 GENERAL: The patient is awake, alert, and fully oriented, in no acute distress. HEAD: Normal with no signs of trauma. EYES: PERRLA, extraocular movements intact, sclera anicteric, conjunctiva clear. ENT: Oropharynx clear without exudates, moist mucous membranes. NECK: Trachea midline, supple without lymphadenopathy. LUNGS: Breath sounds equal, clear to auscultation bilaterally, no wheezes, no crackles, no accessory muscle use. HEART: Regular rate and rhythm, S1, S2 without murmur, rub or gallop. ABDOMEN: Soft, nontender, nondistended, normoactive bowel sounds, no guarding, no rebound tenderness. No hepatomegally appreciated. EXTREMITIES: 2+ radial and dorsalis pedis pulses b/l. Warm, well-perfused. No lower extremity edema b/l. NEUROLOGICAL: Cranial nerves II through XII grossly intact. Normal speech. Strength 4/5 b/l lower extremities limited by back pain. Strength 5/5 b/l upper extremities. PSYCH: Normal mood, normal affect upon my encounter today. SKIN: Warm, dry. Surgical site visualized clean, dry without bleeding, or drainage. Laboratory Results - last 24 hr 11/19/18 11/19/18 06:30 06:30 WBC 6.4 RBC 3.78 L Hgb 11.4 L Hct 34.4 L MCV 91.0 MCH 30.2 MCHC 33.2 RDW 12.8 Plt Count 167 MPV 8.5 Absolute Neuts (auto) 4.3 Neutrophils % 67.0 Lymphocytes % 19.1 Monocytes % 13.0 H Eosinophils % 0.5 Basophils % 0.4 Nucleated RBC % 0 Sodium 134 L Potassium 3.8 Chloride 101 Carbon Dioxide 26 Anion Gap 7 L BUN 10 Creatinine 0.8 Creat Clearance w eGFR > 60 Random Glucose 105 Calcium 7.3 L Phosphorus 2.5 Magnesium 2.0 Active Medications Generic Name Dose Route Start Last Admin Trade Name Freq PRN Reason Stop Dose Admin Diazepam 5 mg 11/17/18 22:00 11/19/18 09:00 Valium - PO 5 mg BID HERNANDEZ Administration Docusate Sodium 300 mg 11/18/18 22:00 11/18/18 21:42 Colace - PO 300 mg HS HERNANDEZ Administration Ondansetron HCl 4 mg 11/17/18 12:57 Zofran Injection IVPUSH Q6H PRN NAUSEA AND/OR VOMITING Oxycodone HCl 5 mg 11/17/18 13:41 11/17/18 21:00 Roxicodone - PO 5 mg Q3H PRN Administration PAIN LEVEL 1-5 Oxycodone HCl 10 mg 11/17/18 22:00 11/19/18 09:00 Oxycontin - PO 10 mg BID HERNANDEZ Administration Oxycodone HCl 10 mg 11/17/18 13:43 11/19/18 18:32 Roxicodone - PO 10 mg Q3H PRN Administration PAIN LEVEL 6-10 Polyethylene Glycol 17 gm 11/19/18 15:33 11/19/18 16:20 Miralax (For Daily Use) - PO 17 gm DAILY PRN Administration CONSTIPATION ASSESSMENT/PLAN: Patient is a 38 year old male with no significant past medical history, s/p L3 laminectomy, L2 & L4 laminotomies, partial corpectomy L4, L3-L4 PLIF, L3-L4 posterior instrumentation, L3-L4 posterolateral arthrodesis, bone graft,bone marrow aspiration. Back pain -Patient is POD #2 s/p L3 laminectomy, L2 & L4 laminotomies, partial corpectomy L4, L3-L4 PLIF, L3-L4 posterior instrumentation, L3-L4 posterolateral arthrodesis, bone graft,bone marrow aspiration. -Case discussed with Dr. Gutierrez today, who recommended continuing incentive spirometer. Dr. Gutierrez to see patient tonight, and remove wound drain. -Patient received Ancef 2 grams postoperatively. -Pain control with Oxycodone SR 10mg PO BID. -Oxycodone 5 mg PO Q3H PRN pain 1-5 -Oxycodone 10 mg PO Q3H PRN pain 6-10 -Zofran 4mg IV Q6H PRN -PT evaluation Constipation -Miralax 17 grams PO daily -Colace 300mg PO HS FEN -No IV fluids. Encourage judicious oral hydration -Within normal limits. Follow CMP -Regular diet. Prophylaxis -SCDs/ TEDs B/L lower extremities. Disposition -Continue care in medical surgical floor. Visit type - Emergency Visit Emergency Visit: No - New Patient This patient is new to me today: No - Critical Care Critical Care patient: No - Discharge Referral Referred to [facility] Med P.C.: No
[2018-11-19] MEDS: DOCUSATE SODIUM 100 MG CAPSULE (FP) PO SCH (22:16)
--- NOTE | 2018-11-19 23:44 | PN ---
Progress Note (short form) - Note Progress Note: 38M s/p L3 laminectomy; L2 & L4 laminotomies; partial corpectomy L4; L3-L4 PLIF ; L3-L4 posterior instrumentation; L3-L4 posterolateral arthrodesis; bone graft ; bone marrow aspiration POD #2. Pain well controlled. No acute events overnight. Pt. denies overnight history of headaches, chest pain, shortness of breath, nausea, vomiting, chills, & sweats. (+) Voiding; (+) Flatus; (-) BM. (+) Walked in [place]. All labs and vitals reviewed. PE: AAO x 3, NAD. L-Spine: Incision, dressing C/D/I. Drain removed. B/L LE M: L2-S1 5/5. B/L LE S: L2-S1 2/2. 38M s/p L3 laminectomy; L2 & L4 laminotomies; partial corpectomy L4; L3-L4 PLIF ; L3-L4 posterior instrumentation; L3-L4 posterolateral arthrodesis; bone graft ; bone marrow aspiration POD #2. -Pain control: no NSAID's. -DVT PPx: - Mechanical only: DEMARCO's, SCD's. -Incentive spirometry q15min. -PT/OT/Rehab, OOB. -WBAT B/L LE. -q4h B/L LE NV checks. -Bowel regimen; advance diet as tolerated. -f/u AM labs. -Care per medical hospitalist team. -Discharge planning[facility] for [facility]; . -Will follow. Shayan Gutierrez MD (Orthopaedic Surgery).
[2018-11-20] MEDS: oxyCODONE HCL 5 MG TABLET PO PRN ×2 (01:20→08:11)
[2018-11-20 07:43] LABS: MCH 30.4 pg (25.7-33.7); MCHC 33.5 g/dl (32.0-35.9); MEAN CELL VOLUME 90.8 fl (80-96); MEAN PLT VOLUME 8.7 fl (7.5-11.1); PLATELET COUNT 181 K/MM3 (134-434); RBC 3.96 M/mm3 (4.00-5.60); RDW 12.4 % (11.9-15.9); WHITE BLOOD COUNT 5.4 K/mm3 (4.0-10.0)
[2018-11-20 08:17] LABS: ALK PHOS 45 U/L (45-117); ANION GAP 6 MMOL/L (8-16); BILIRUBIN,TOTAL 1.2 mg/dL (0.2-1); BLOOD UREA NITROGEN 9 mg/dL (7-18); CHLORIDE 100 mmol/L (98-107); CO2 28 mmol/L (21-32); CREATININE 0.8 mg/dL (0.55-1.3); GLUCOSE,RANDOM 99 mg/dL (74-106); POTASSIUM 4.1 mmol/L (3.5-5.1); SGOT/AST 30 U/L (15-37); SGPT/ALT 34 U/L (13-61); SODIUM 134 mmol/L (136-145)
[2018-11-20] MEDS: oxyCODONE HCL 10 MG SUSTAINED ACTING TABLET PO SCH (11:07)
[2018-11-20] MEDS: diazePAM 5 MG TABLET PO SCH (11:08)
[2018-11-20] MEDS: POLYETHYLENE GLYCOL 3350 119 GM BTL PO PRN (12:43)
[2018-11-20 13:39] LABS: BILIRUBIN,DIRECT 0.4 mg/dL (0.0-0.2)
[2018-11-20 14:16] VITALS: BP 156/81; PULSE 94; TEMP 98.6
--- NOTE | 2018-11-20 16:37 | PN ---
Teaching Attending Note Name of Resident: Pop Hernandez ATTENDING PHYSICIAN STATEMENT I saw and evaluated the patient. I reviewed the resident's note and discussed the case with the resident. I agree with the resident's findings and plan as documented. SUBJECTIVE: Feels better. Pain well controlled. No fever/chills. OBJECTIVE: Afebrile/Hemodynamically Stable. Last Vital Signs Temp Pulse Resp BP Pulse Ox 98.6 F 94 H 18 156/81 99 11/20/18 14:15 11/20/18 14:15 11/20/18 10:00 11/20/18 14:15 11/20/18 09:00 HEENT - Atraumatic, Normocephalic Heart - S1, S2, RRR Lungs - clear to auscultation Abdomen - Soft, non-tender. Bowel Sounds normal. Back - surgical dressing in place - dry, clean Extremities - No calf tenderness. Neuro - AAO x 3. Tone/Power normal all 4 extremities. Laboratory Results - last 24 hr 11/20/18 11/20/18 06:00 06:00 WBC 5.4 RBC 3.96 L Hgb 12.0 Hct 36.0 MCV 90.8 MCH 30.4 MCHC 33.5 RDW 12.4 Plt Count 181 MPV 8.7 Sodium 134 L Potassium 4.1 Chloride 100 Carbon Dioxide 28 Anion Gap 6 L BUN 9 Creatinine 0.8 Creat Clearance w eGFR > 60 Random Glucose 99 Calcium 8.0 L Total Bilirubin 1.2 H Direct Bilirubin 0.4 H AST 30 ALT 34 Alkaline Phosphatase 45 Total Protein 6.0 L Albumin 3.0 L Current Medications Generic Name Dose Route Start Last Admin Trade Name Freq PRN Reason Stop Dose Admin Diazepam 5 mg 11/17/18 22:00 11/20/18 11:08 Valium - PO 5 mg BID HERNANDEZ Administration Docusate Sodium 300 mg 11/18/18 22:00 11/19/18 22:16 Colace - PO 300 mg HS HERNANDEZ Administration Ondansetron HCl 4 mg 11/17/18 12:57 Zofran Injection IVPUSH Q6H PRN NAUSEA AND/OR VOMITING Oxycodone HCl 10 mg 11/17/18 22:00 11/20/18 11:07 Oxycontin - PO 10 mg BID HERNANDEZ Administration Polyethylene Glycol 17 gm 11/19/18 15:33 11/20/18 12:43 Miralax (For Daily Use) - PO 17 gm DAILY PRN Administration CONSTIPATION ASSESSMENT AND PLAN: 38 year old male with no significant PMH, admitted 11/17 with Spinal Stenosis, currently POD 3 s/p L3 laminectomy, L2 & L4 laminotomies, partial corpectomy L4 , L3-L4 PLIF, L3-L4 posterior instrumentation, L3-L4 posterolateral arthrodesis , bone graft, bone marrow aspiration. 1. POD 3 s/p L3 laminectomy, L2 & L4 laminotomies, partial corpectomy L4, L3-L4 PLIF, L3-L4 posterior instrumentation, L3-L4 posterolateral arthrodesis, bone graft for spinal stenosis. Continue Valium, Oxycontin, and Roxicodone prn. Febrile post-op, likley sec to atelectasis, no further fever for over 24 hours. Currently asymptomatic. incentive Spirometry encouraged. 2. Constipation - continue colace and miralax prn. Medically and Neurologically Stable for discharge with Spinal Surgery follow up on 11/28/2018 at [facility] [place] office; .
--- NOTE | 2018-11-20 17:57 | DS ---
Physical Exam: SUBJECTIVE: Patient seen and examined at bedside. He has been afbrile for the past 24 hours. He endorses ambulating well from bed to bathroom. Endorses passing flatus, without bowel movement. Denies subjective fevers, or chills. Denies cough, shortness of breath, chest pain, palpitations, abdominal pain, nausea, vomiting, diarrhea, melena, hematochezia, dysuria, hematuria. Endorses mild back pain, well controlled with Oxycodone. OBJECTIVE: Vital Signs Period Temp Pulse Resp BP Sys/Lewis Pulse Ox Last 24 Hr 98.3 F-99.2 F 85-95 18-20 129-156/60-89 99-100 PHYSICAL EXAM GENERAL: The patient is awake, alert, and fully oriented, in no acute distress. HEAD: Normal with no signs of trauma. EYES: PERRLA, extraocular movements intact, sclera anicteric, conjunctiva clear. ENT: Oropharynx clear without exudates, moist mucous membranes. NECK: Trachea midline, supple without lymphadenopathy. LUNGS: Breath sounds equal, clear to auscultation bilaterally, no wheezes, no crackles, no accessory muscle use. HEART: Regular rate and rhythm, S1, S2 without murmur, rub or gallop. ABDOMEN: Soft, nontender, nondistended, normoactive bowel sounds, no guarding, no rebound tenderness. No hepatomegally appreciated. EXTREMITIES: 2+ radial and dorsalis pedis pulses b/l. Warm, well-perfused. No lower extremity edema b/l. NEUROLOGICAL: Cranial nerves II through XII grossly intact. Normal speech. Strength 4/5 b/l lower extremities limited by back pain. Strength 5/5 b/l upper extremities. PSYCH: Normal mood, normal affect upon my encounter today. SKIN: Warm, dry. Surgical site visualized clean, dry without bleeding, or drainage. LABS Laboratory Results - last 24 hr 11/20/18 11/20/18 06:00 06:00 WBC 5.4 RBC 3.96 L Hgb 12.0 Hct 36.0 MCV 90.8 MCH 30.4 MCHC 33.5 RDW 12.4 Plt Count 181 MPV 8.7 Sodium 134 L Potassium 4.1 Chloride 100 Carbon Dioxide 28 Anion Gap 6 L BUN 9 Creatinine 0.8 Creat Clearance w eGFR > 60 Random Glucose 99 Calcium 8.0 L Total Bilirubin 1.2 H Direct Bilirubin 0.4 H AST 30 ALT 34 Alkaline Phosphatase 45 Total Protein 6.0 L Albumin 3.0 L HOSPITAL COURSE: Date of Admission:11/17/18 Date of Discharge: 11/20/18 Patient is a 38 year old male with no significant past medical history, s/p L3 laminectomy, L2 & L4 laminotomies, partial corpectomy L4, L3-L4 PLIF, L3-L4 posterior instrumentation, L3-L4 posterolateral arthrodesis, bone graft,bone marrow aspiration. Patient tolerated procedure well. Pain was adequately controlled with Oxycodone. Patient became febrile to Tmax 100.9F. No WBC elevation noted during post-operative course. Discussed with Dr. Gutierrez who stated likely post operative atelectasis, and recommended judicious use of incentive spirometer. Patient was seen by Dr. Gutierrez who cleared patient for discharge, and wound drain was removed by Dr. Gutierrez. Patient ambulated well with PT and was discharged home to follow up with primary care physician, and Dr. Gutierrez. Minutes to complete discharge: 35 Discharge Summary Reason For Visit: SPINAL STENOSIS Current Active Problems Back pain (Acute) Spinal stenosis (Acute) Condition: Stable - Instructions Diet, Activity, Other Instructions: Your were admitted to the hospital after back surgery with Dr. Gutierrez. You are being discharged home. Continue taking your home medications as directed. DO NOT take Ibuprofen, Aspirin, or any other NSAIDs until discussing with surgeon Dr. Gutierrez. You may take Tylenol for pain relief. Do not exceed the maximum recommended dosage of 4,000mg in one day. Follow up with Dr. Gutierrez within one week after discharge. A referral has been provided for you. [facility] [place] office; call for appointment; . Follow up with your primary care provider within one week after discharge. Return to the nearest Emergency Department if you experience any worsening symptoms, back pain, bleeding or discharge from surgical site, numbness, or tingling of your extremities, fevers, chills, shortness of breath, chest pain, palpitations, abdominal pain, nausea, vomiting. Referrals: Shayan Gutierrez MD [Staff Physician] - Disposition: HOME - Home Medications Comprehensive Discharge Medication List: Ambulatory Orders Multivitamin [One-Daily Multi-Vitamin] 1 each PO DAILY 11/13/18 This patient is new to me today: No Emergency Visit: No Critical Care patient: No - Discharge Referral [facility]erred [facility] Med P.C.: No
== END 2018-11-20 19:40 | disposition home or self-care (01) | DRG 304 ==
LOC: JSAMEDAYSX 06:10 → EDSEX 08:00 → JICU 13:42 → J6S 11-18 12:52
PROVIDERS: ADMIT Orthopaedic Surgery Adult Reconstructive Orthopaedic Surgery
PROC: 0ST20ZZ Resection of Lumbar Vertebral Disc, Open Approach (ICD-10-PCS; 2018-11-17)
PROC: 00NY0ZZ Release Lumbar Spinal Cord, Open Approach (ICD-10-PCS; 2018-11-17)
PROC: 07DR0ZZ Extraction of Iliac Bone Marrow, Open Approach (ICD-10-PCS; 2018-11-17)
PROC: 4A10X4G Monitoring of Central Nervous Electrical Activity, Intraoperative, External Approach (ICD-10-PCS; 2018-11-17)
PROC: B01BZZZ Fluoroscopy of Spinal Cord (ICD-10-PCS; 2018-11-17)
PROC: 0SG00AJ Fusion of Lumbar Vertebral Joint with Interbody Fusion Device, Posterior Approach, Anterior Column, Open Approach (ICD-10-PCS; principal; 2018-11-17 08:00)
DX: M43.16 Spondylolisthesis, lumbar region (principal); M51.86 Other intervertebral disc disorders, lumbar region; M48.061 Spinal stenosis, lumbar region without neurogenic claudication; M47.896 Other spondylosis, lumbar region; M53.2X6 Spinal instabilities, lumbar region; K59.00 Constipation, unspecified; M54.9 Dorsalgia, unspecified
CPT/HCPCS: 36415; 76000-TC-FY; 80048; 80053; 81003; 81015; 82248; 83735; 84100; 85025; 85027; 86850; 86900; 86901; 88304-TC; 97116-GP; 97161-GP; J0131